=== PATIENT | male | born 1960 ===

== ENCOUNTER 2020-07-23 09:45 | Day surgery (SDC) | payer BC, OTHER ==
[~2020-07-23] VITALS: Ht 152.4 cm; Wt 89.8 kg
[~2020-07-23 09:45] MED LIST: ATOR40TA PO; Aspirin EC81 MG PO; BUPR150ER PO; CILO100 PO; CLOP75 PO; Lisinopril2.5 MG PO; XARELTO20 MG PO
--- NOTE | 2020-07-23 10:53 | NUR ---
PATIENT TAKEN IN FOR PROCEDURE. NOTIFIED VIA PHONE THAT HE WAS GOING IN FOR HIS PROCEDURE AND INFORMED HER THAT WE WOULD CALL HER WHEN HE GOT OUT. ALL QUESTIONS ANSWERED.
--- NOTE | 2020-07-23 13:45 | NUR ---
NAKIA RETURNED FROM THE SENIOR PROPERTY MANAGER. RIGHT GROIN CLOSURE WITH ANGIOSEAL. DRESSING CLEAN AND DRY. SMALL DIME SIZE NOTATION OF BLOOD ON THE DRESSING. LEFT PEDAL ACCESS WITH JONATHAN/TEGADERM IN PLACE. LEFT PEDAL DRESSING ALSO CLEAN AND DRY. PATIENT PLACED ON THE MONITOR AND CALL LIGHT IN REACH. VVS. NO PAIN NOTED. PATEINT TAKING SMALL SIPS OF WATER. PATIENT FALLS OFF TO SLEEP WHEN NOT DISTURBED. MEAL TRAY AT THE BEDSIDE. PATIENT PLAT IN THE BED IN REVERSE TRENDELENBERG.
--- NOTE | 2020-07-23 14:11 | NUR ---
DR. AVITIA AT THE BEDSIDE TO CHECK ON PATIENT. PATIENT WILL RETURN FOR PROCEDURE ON THE RIGHT LEG, CONSENT FOR THIS TODAY BY DR. AVITIA. CONSENT WILL BE SENT TO THE OFFICE FOR SCHEDULING.
--- NOTE | 2020-07-23 14:30 | NUR ---
HOB UP 15 DEGREES, PATIENT AWAKE AND FEEDING SELF. CALL LIGHT IN REACH.
--- NOTE | 2020-07-23 14:47 | NUR ---
GROIN CHECKED. STABLE HOB UP TO 0 DEGREES. WATCHING TV. CALL IGHT IN REACH. VVS. DOPPLER PULSES NOTED.
--- NOTE | 2020-07-23 15:08 | NUR ---
ON HER WAY FOR DISCHARGE. REVIEWED ALL DISCHARGE INSTRUCTIONS AND MEDICATIONS WITH THE PAITENT. HE VERBALIZED UNDERSTANDING AND COPIES IN HIS POSSESSION. HE UNDERSTANDS THAT THE OFFICE WILL CALL HIM TO SCHEDULE THE RIGHT LEG INTERVENTION TO BE DONE IN THE NEXT FEW WEEKS. PATIENT VOIDED 300 URINE.
--- NOTE | 2020-07-23 15:49 | NUR ---
PATIENT UP AND DRESSED, PIV DISCONTINUED. PATIENT TO THE RESTROOM AND ALL BELONGINGS GATHERED. COPIES OF DISCHARGE INSTRUCTIONS GIVEN TO THE PATIENT. PATIENT HERE FOR DISCHARGE. DISHCARGE TO PRIVATE VEHICLE VIA WHEELCHAIR.
== END 2020-07-23 15:56 | disposition home or self-care (01) ==
LOC: MHTC 09:45
DX: I70.223 Atherosclerosis of native arteries of extremities with rest pain, bilateral legs (principal); T82.898A Other specified complication of vascular prosthetic devices, implants and grafts, initial encounter; I97.89 Other postprocedural complications and disorders of the circulatory system, not elsewhere classified; F17.210 Nicotine dependence, cigarettes, uncomplicated; E78.5 Hyperlipidemia, unspecified; I10 Essential (primary) hypertension; Y71.2 Prosthetic and other implants, materials and accessory cardiovascular devices associated with adverse incidents; Z88.6 Allergy status to analgesic agent; Z79.82 Long term (current) use of aspirin; Z79.01 Long term (current) use of anticoagulants; Z79.02 Long term (current) use of antithrombotics/antiplatelets
CPT/HCPCS: 37184; 37224; 37228; 37232; 75716; 75774; 76937; 85347; 99152; 99153; C1725; C1757; C1760; C1769; C1887; C1894; J1644; J2250; J2997; J3010; J7030; J7050; Q9967

== ENCOUNTER 2020-08-19 09:37 | Day surgery (SDC) | payer BC, OTHER ==
[~2020-08-19] VITALS: Ht 177.8 cm; Wt 89.1 kg
--- NOTE | 2020-08-19 11:53 | NUR ---
DR. AVITIA AT THE BEDSIDE AND SPOKE WITH PATIENT, PRE-OP ASSESSMENT SIGNED.
--- NOTE | 2020-08-19 17:51 | NUR ---
PT ARRIVED TO ICU 1 FROM EDUCATIONAL CONSULTANT AT 1500. A/O X4, ASKS APPROPRIATE QUESTIONS ABOUT CARE. PT HAS SHEATH TO L FEMORAL ARTERY. TPA AND HEPARIN WERE STARTED PER ORDERS THROUGH SHEATH. SITE IS STABLE. PT HAS INCREASED HOB BY HIMSELF A COUPLE TIMES DESPITE BEING TOLD NOT TO DO THAT. PT IS HAVING PAIN IN R FOOT. PEDAL PULSES FOUND WITH DOPPLER X4. SKIN IS WARM AND PINK. FENTANYL GIVEN FOR PAIN, VERSED GIVEN TO RELAX PT SO HE IS NOT TRYING TO SIT UP FREQUENTLY. UPDATED OVER THE PHONE. NO SIGN OF DISTRESS. WILL CONTINUE TO MONITOR GROIN SITE UNTIL REPORT OFF TO NIGHT RN.
--- NOTE | 2020-08-20 05:14 | NUR ---
PATIENT HAS REMAINED A/O X4, ON ROOM AIR, BP STABLE, AND IN NSR. L FEM SITE HAS REMAINED SOFT, NONTENDER, AND NO EVIDENCE OF A HEMATOMA. SITE DEVELOPED SOME MINOR BLEEDING THIS MORNING DUE TO A LOOSE CONNECTION UNDER DRESSING. STILL NO EVIDENCE OF A HEMATOMA AT THIS TIME. SITE ALSO LOOKED AT BY WAREHOUSE LEAD-PEPPER. PATIENT TOLERATING CLEAR LIQUID DIET. THE PATIENT HAS ONLY COMPLAINED OF PAIN IN R FOOT THAT HAS CONTINUED THROUGH STAY THUS FAR. 100 Q1 FENTANYL GIVEN MOST OF SHIFT FOR COMFORT DUE TO 10/10 PAIN.
--- NOTE | 2020-08-20 07:08 | NUR ---
PT TAKEN TO VICE PRESIDENT OF NEWS BY VICE PRESIDENT OF NEWS RN X2. PT IS A/O X4, HAS PAIN IN R FOOT. SOME OOZING OF BLOOD AT SHEATH SITE BUT NOT SATURATING. TPA AND HEPARIN RUNNING IN SHEATH PT LEAVES. NO SIGN OF DISTRESS.
[2020-08-20] MEDS ORDERED: CLOP75 PO (10:51)
--- NOTE | 2020-08-20 13:15 | NUR ---
PT WAS BEDREST FOR 4 HOURS POST PROCEDURE. SLOWLY LIFTED HOB WITHOUT ISSUE. SAT AT SIDE OF BED FOR AWHILE THEN WAS ABLE TO TAKE A COUPLE STEPS WITHOUT ISSUE. L FEMORAL GROIN SITE IS STABLE. SMALL AMT OF BLOOD WITHIN THE DRESSING THAT HAS NOT CHANGED. R FOOT SITE HAS NOT CHANGED.
--- NOTE | 2020-08-20 14:05 | NUR ---
PT AMBULATORY IN ROOM. R FOOT ACCESS SITE AND L FEMORAL ACCESS SITE ARE STABLE. DISCHARGE INSTRUCTIONS FOR ACCESS SITES AND MEDS GONE OVER WITH PT MULTIPLE TIMES AND WITH . PT ABLE TO VERBALIZE BACK MEDICATIONS AND DOSES TO TAKE. RX LIST FA[facility]ED TO [facility]. DOSE OF ELIQUIS AND PLAVIX GIVEN BEFORE PT WAS DISCHARGED AND HEPARIN WAS STOPPED. PT WHEELED TO CAR WITH W/C. NO SIGN OF DISTRESS HE LEAVES.
== END 2020-08-20 14:31 | disposition home or self-care (01) ==
LOC: ICUE 09:37 → MHTC 09:37 → ICUE 14:40 → MHTC 08-20 14:31
DX: I70.223 Atherosclerosis of native arteries of extremities with rest pain, bilateral legs (principal); T82.868A Thrombosis due to vascular prosthetic devices, implants and grafts, initial encounter; F17.210 Nicotine dependence, cigarettes, uncomplicated; E78.5 Hyperlipidemia, unspecified; I10 Essential (primary) hypertension; Y71.1 Therapeutic (nonsurgical) and rehabilitative cardiovascular devices associated with adverse incidents; Z79.82 Long term (current) use of aspirin; Z79.02 Long term (current) use of antithrombotics/antiplatelets; Z79.01 Long term (current) use of anticoagulants; Z88.6 Allergy status to analgesic agent
CPT/HCPCS: 36415; 37184; 37185; 37211; 37214; 37224; 37228; 37230; 37232; 75716; 75774; 76937; 85018; 85347; 85384; 99152; 99153; A9270; C1725; C1751; C1753; C1757; C1760; C1769; C1874; C1887; C1894; J1644; J2250; J2997; J3010; J7030; J7040; J7050; Q9967

== ENCOUNTER 2021-03-17 09:34 | Observation (INO) | payer BC ==
[~2021-03-17] VITALS: Ht 177.8 cm; Wt 91.6 kg
--- NOTE | 2021-03-17 16:28 | NUR ---
ARRIVAL TO UNIT PT. ARRIVES FROM CLINICAL EDUCATION SPECIALIST, ALERT AND ORIENTED ON RA. PT. SUPINE IN BED, SHEATH TO RIGHT GROIN WNL, NO SWELLING NO HEMATOMA. PT. INSTRUCTED ON LAYING FLAT WITH NO FLEXION AT THE HIP. HEPARIN AND CATHFLO TO SHEATH PER CLINICAL EDUCATION SPECIALIST INSTRUCTION. DOPPLER PULSES TO RIGHT FOOT, DIFFICULTY OBTAINING DOPPLER PULSES TO LEFT FOOT, UNCHANGED PER CLINICAL EDUCATION SPECIALIST STAFF. RIGHT FOOT WARM, NO SWELLING, LEFT TOES COOL TO TOUCH WITH CAP REFILL >3 SECONDS TO GREAT TOE. PT REPORTS PAIN 10/10 TO LEFT LEG. NO SWELLING AT THIS TIME, UNCHANGED PER CLINICAL EDUCATION SPECIALIST HAND OFF. PT. PLACED ON BUYER RENTER, VSS WNL. CALL LIGHT IN REACH. WILL MED PER DR. CARIAS.
--- NOTE | 2021-03-17 17:58 | NUR ---
CALL TO DR. AVITIA FOR ADDITIONAL PAIN MEDICATION PT. YELLING AND CLENCHING FISTS, STATES "THIS PAIN IS UNTOLERABLE". PER DR. AVITIA 1-2MG DILAUDID Q2H. PT REPORTS PAIN TOLERABLE AT 10/10 WITH DILAUDID ADMIN. FOOT NOW PINK AND WARM. TOES NOW PINK WITH DOPPLER TO POST TIBIAL. PT GRONING AND RESTLESS IN BED. GROIN SITE REMAINS STABLE.
--- NOTE | 2021-03-17 18:14 | NUR ---
SHIFT SUMMARY CONTINUE TO HAVE DIFFICULTY MANAGING PAIN. PT. GETTING FENTANYL Q1H ALONG WITH VERSED AND DILAUDID Q2H PER DR. ORDER. PT FOOT NOW PINK AND WARM, WITH PULSES TO POSTERIOR TIBIAL, AND INT. DOPPLER TO PEDAL ON LEFT FOOT. GROIN SITE REMAINS STABLE, PT REMAINS SUPINE IN BED, ASSISTED TO REPOSITION FOR COMOFRT. TPA INFUSING ALONG WITH HEPARIN. CALL LIGHT IN REACH.
--- NOTE | 2021-03-17 21:33 | NUR ---
ASSUMED CARE AT 1900 PATIENT ALERT AND ORIENTED. 02 SATS 97% ON RA, ONCE GIVEN PAIN MEDS PLACE ON 2L VIA NC TO MAINTAIN 02 SATS >93%. LUNGS CLEAR. HR SR @70s. BP HYPERTENSIVE. PEDAL PULSES IN BLE FOUND WITH DOPPLER. LLE PINK BUT COOL, PATIENT HAS SENSATION IN EXTREMETY. PATIENT LAYING FLAT. TPA AND HEPARIN INF PER ORDERS. PATIENT REPORTS CONSTANT PAIN, MEDICATING FREQUENTLY PER EMAR. SEE SHIFT ASSESSMENT FOR MORE DETAIL.
--- NOTE | 2021-03-18 05:58 | NUR ---
SHIFT SUMMARY PATIENT IS ALERT AND ORIENTED X4. 02 SATS >95% WITH 2L VIA NC WHILE SLEEPING TO MAINTAIN 02 SATS. LUNGS CLEAR. HR SR @60S. BP STABLE. DOPPLER PULSES BLE. LLE PEDAL PULSE FOUND INTERMITTENLY WITH DOPPLER, LEFT FOOT PINK AND COOL TO THE TOUCH. PEDAL DRESSING C/D/I. LEFT TIBIAL DRESSING CHANGED TWICE AND PRESSURE HELD D/T SMALL AMOUNT OF BLEEDING. PAIN MEDS FREQUENTLY FOR PAIN CONTROL, SEE EMAR. NPO SINCE MIDNIGHT. PATIENT REMIAND FLAT WITH TPA AND HEPARIN INF. PATIENT USES URINAL. CALLS APPROPRIETLY. ABLE TO REPOSITION SELF IN BED.
--- NOTE | 2021-03-18 09:11 | NUR ---
AM NOTE... ASSUMED CARE OF PT AT 0700, THE PT IS A&Ox4, THE PT HAS A SHEATH IN THE RIGHT GROIN, WITH HEPARIN GTT AND TPA RUNNING PER ORDERS, PLAN IS FOR THE PT TO RETURN TO THE AIR TESTER APROX 1200 TODAY. THE PT IS IN SR IN THE 70'S WITH A STABLE BP. THE PT HAS AN ACCESS SITE TO THE LEFT D. PEDAL AND LEFT P. TIBIAL, THE SITE TO THE D. PEDAL IS C/D/I NO SWELLING, BLEEDING OR HEMATOMA NOTED. THE SITE TO THE P. TIBIAL IS NOTED TO BE OOZING WITH THE CURRENT DRESSING SATURATED WITH BLOOD. THE PT'S LEFT LEG FROM THE KNEE DOWN IS BRIGHT PINK WITH 1+ EDEMA NOTED, THE PT STATES THE CALF HURTS AT 9/10. PULSES FOUND TO BLE WITH DOPPLER. THE RIGHT GROIN SITE HAS A SMALL AMOUNT OF OOZING NOTED BUT THE SITE IS STABLE AT THIS TIME, NO SWELLING, BLEEDING OR HEMATOMA NOTED. THE PT IS ON RA W/O2 SATS >90% L/S COARSE T/O AND DIM IN THE BASES. BT PRESENT AND HYPERACTIVE, ABD IS FIRM AND NONTENDER TO PALP. THE DRESSING TO THE LEFT P. TIBIAL SITE WAS CHANGED BY THIS RN, A JONATHAN DRESSING WAS PLACED ON THE SITE AND THE SITE STARTED TO BLEED. PRESSURE WAS HELD BY THIS RN AND THE DIRECTOR OF DIRECT MARKETING FOR 11 MINS, THIS STOPPED THE BLEEDING FOR APROX 1 HOUR AND THE OOZING STARTED AGAIN. THE PROVIDER WAS CALLED AND UPDATED ON THIS CHANGE, NO NEW ORDERS WERE GIVEN. CALL LIGHT IN REACH WILL CONTINUE TO MONITOR.
--- NOTE | 2021-03-18 12:06 | NUR ---
PT UPDATE.... THE PT WAS TAKEN TO THE ANDROID PLATFORM DEVELOPER AT 1207. THE TPA AND HEPARIN GTT WERE TAKEN WITH THE PT. WILL CONTINUE TO MONITOR.
--- NOTE | 2021-03-18 14:38 | NUR ---
PT UPDATE.... PT RETURNED FROM THE ELECTRIC MOTOR ANALYST AT 1430, THE SHEATH WAS REMOVED AT 1420 AND AN ANGIO SEAL WAS PLACED TO THE RIGHT GROIN SITE. THE PT'S VS ARE STABLE AT THIS TIME, PLAN TO D/C HOME THIS AFTER NOON.
--- NOTE | 2021-03-18 15:15 | NUR ---
PT UPDATE.... THE PT'S RIGHT GROIN SITE IS STABLE AT THIS TIME, NO BLEEDING, SWELLING OR HEMATOMA NOTED. THE PT'S LEFT P. TIBIAL SITE HAS A SMALL HEMATOMA NOTED, PRESSURE WAS HELD AT THIS SITE FOR 10MINS, MOST OF THE SWELLING IMPROVED AND THE SITE IS NO LONGER OOZING AT THIS TIME. THE PT'S WAS UPDATED THAT THE PT IS TO D/C HOME APROX 1700 IF HIS RECOVERY GOES WELL. WILL CONTINUE TO MONITOR.
--- NOTE | 2021-03-18 17:31 | NUR ---
PT D/C HOME.... PT D/C'D HOME WITH WRITTEN AND VERBAL INSTRUCTIONS ON THE GRION SITE PRECAUTIONS AND CARE. PT VERBALIZED HIS UNDERSTANDING OF THESE INSTRUCTIONS. ALL THE PT'S BELONGINGS WERE PACKED AND SENT WITH THE PT. THE PT'S GROIN SITE, LEFT P. TIBIAL AND LEFT D. PEDAL SITES WERE ARE C/D/I WITH NO SWELLING, BLEEDING OR HEMATOMA NOTED. THE PT DENIED ANY PAIN TO THE SITES JUST THE CHRONIC PAIN TO HIS BLE. PT WAS ESCORTED OUT VIA W/C BY THIS RN.
== END 2021-03-18 17:25 | disposition home or self-care (01) ==
LOC: MHTC 09:34 → ICUE 15:37 → MHTC 15:46 → ICUE 03-18 17:25
PROVIDERS: ADMIT Radiology Diagnostic Radiology
DX: T82.392A Other mechanical complication of femoral arterial graft (bypass), initial encounter (principal); I70.213 Atherosclerosis of native arteries of extremities with intermittent claudication, bilateral legs; I10 Essential (primary) hypertension; Z20.822 Contact with and (suspected) exposure to COVID-19
CPT/HCPCS: 36415; 76937; 85018; 85347; 85384; 96374; 96375; 96376; 99152; 99153; A9270; C1725; C1757; C1760; C1769; C1874; C1887; C1894; C2623; G0378; J1170; J1644; J2250; J2405; J2997; J3010; J7030; J7040; Q9967

== ENCOUNTER 2021-04-07 08:59 | Day surgery (SDC) | payer BC ==
[~2021-04-07] VITALS: Ht 177.8 cm; Wt 92.0 kg
[2021-04-07 10:55] LABS: Influenza A, PCR NEGATIVE (NEGATIVE); Influenza B, PCR NEGATIVE (NEGATIVE); Resp Syncytial Virus, PCR NEGATIVE (NEGATIVE); SARS-Cov-2 (COVID-19) PCR, MMC NEGATIVE (NEGATIVE)
--- NOTE | 2021-04-07 14:45 | NUR ---
Patient arrived from [facility]. Received report from Dr Burris and Camilo MELTON. Patient has sheath in right groin with two ports and clear opsite at site with small amount of blood, Free of any swelling or hematoma. He is alert and oriented and is able to communicate his needs. He has 2+ left posterior tibial and 1+ /doppler right tibial and unable to find with doppler bilateral pedal and Camilo MELTON HC unable as well before leaving patient. TPA 1mg/hr infusing through sheath on clear line and Heparin in light green line at 500 units/hr. Patient has 20ga IV in LAC infusing LR from until gone. Patient has called significant otherr with update and other family as well.
--- NOTE | 2021-04-07 18:02 | NUR ---
Patient has c/o 8-10/10 pain in right foot with very minimal relief with Dilaudid and Fentanyl. He continues to have TPA at 1mg/hr and Heparin at 500 units/hr infusing through left groin cath. Have told patient several time to not move left extremity and he has been thrashinbg around. I have checked groin site several times whenm reminding him and soft and palpable. He remaisn very alert and hypertensive with pain. He tolerated finger foods when arriving and has dinner sitting on tray now.
--- NOTE | 2021-04-07 18:22 | NUR ---
Patient continues to have bilateral + pulses to posterior tibial. Right foot remains cool even with warming pad and sock.
--- NOTE | 2021-04-07 19:40 | NUR ---
ASSUMED PT CARE AT 1915 FROM LINH LINDQUIST PT LYING IN BED MOANING/GROANING D/T 10/10 PAIN TO R FOOT. SILK SCREEN PRINTER HELPER DILAUDID HAS BEEN ORDERED AND PHARMACY IS CURRENTLY IN THE PROCESS OF MAKING THE GTT. PT IS ALERT AND ORIENTED AND ABLE TO MAKE HIS NEEDS KNOWN. LEFT GROIN SHEATH IN PLACE WITH TPA INFUSING AT 1MG/HR AND HEPARIN AT 500 UNITS/HR. SITE REMAINS SOFT, NON-TENDER WITH NO OOZING NOTED. RIGHT PEDAL PULSE UNOBTAINABLE VIA DOPPER. ABLE TO OBTAIN A VERY FAINT AND SLUGGISH PULSE TO RIGHT TIBIAL SITE. LEFT PEDAL AND TIBIAL PULSES BOTH OBTAINABLE VIA DOPPLER. PT IS HYPERTENSIVE AT THIS TIME MOST LIKELY D/T PAIN; WILL REASSESS ONCE PAIN IS MANAGED. PT MEDICATED WITH FENTANYL AT 50MCG WHILE WE WAIT FOR DILAUDID SILK SCREEN PRINTER HELPER. PT PROVIDED WITH URINAL AND CALL LIGHT IS WITHIN REACH. WILL CONTINUE TO MONITOR.
--- NOTE | 2021-04-08 04:25 | NUR ---
END OF SHIFT SUMMARY PT SLEPT MOST OF NIGHT. ABIDED BY STRICT BED REST PRECAUTIONS. LEFT GROIN SHEATH REMAINS IN PLACE; SOFT, NON-TENDER WITH A SMALL, <5CM, HARD AND INDURATED AREA. NO OOZING AT SITE. PULSES REMAIN OBTAINABLE VIA DOPPLER TO LLE AND TIBIAL DOPPLER OBTAINED TO RLE. UNABLE TO OBTAIN DOPPLER PEDAL PULSE TO RLE. R TOES APPEAR DUSKY; WARMER NOW THAN AT THE START OF THE SHIFT. HEPARIN INFUSING AT 500 UNITS/HR AND TPA AT 1MG/HR. PT REMAINS ALERT AND ORIENTED WITH NO NEURO CHANGES NOTED THIS SHIFT. DILAUDID MANAGER FAST FOOD EFFECTIVELY CONTROLLED PT'S PAIN TO THE POINT WHERE HE WAS ABLE TO SLEEP AND STATES IT IS NOW A 4/10 COMPARED TO A 10/10. CALL LIGHT IS WITHIN REACH AND PT IS ABLE TO MAKE HIS NEEDS KNOWN. WILL CONTINUE TO MONITOR UNTIL REPORT IS HANDED OFF TO ONCOMING RN.
--- NOTE | 2021-04-08 07:55 | NUR ---
ASSUMPTION OF CARE Pt is a/o x 4 with ongoing pain to his right foot. He is using his DATA ENTRY OPERATOR for pain control. His Heparin and TPA are running as ordered. His sheath is patent in his left Fem artery with fluids infusing. The insertion site is soft and non-tender with no bleeding, the dressing is CDI. His BLE pulses were found with the doppler. He is on room air with sats in the 90's. His right foot toes are dusky but warm. He is scheduled to go to the metallurgy laboratory technician this morning and his NPO for his procedure. He has his call light and calls when needed.
--- NOTE | 2021-04-08 08:35 | NUR ---
UPDATE Dr Seymour stopped by and talked with the pt about his scheduled procedure. Dr Seymour said that they will be taking him back shortly and the pt called his family to update them.
--- NOTE | 2021-04-08 15:51 | NUR ---
PT AMBULATED AROUND NURSE'S STATION WITHOUT DIFFICULTY. REPORTS MINIMAL PAIN. BACK TO ROOM AND GROIN SITE ASSESSED - LEFT GROIN SOFT AND NO SIGNS OF BLEEDING. PT INSTRUCTED TO CONTINUE TO MONITOR GROIN SITE AND RETURN TO ER IF BLEEDING OR HEMATOMA DEVELOPS. PT AGREEABLE AND STATES "I'VE DONE THIS BEFORE".
[2021-04-08] MEDS ORDERED: Norco 5-325 Ta1 EACH PO (15:56)
--- NOTE | 2021-04-08 16:07 | NUR ---
SHIFT SUMMARY Pt has been a/o x 4 all day. pre-procedure he had quite a bit of pain that was being managed with his SPRINKLER IRRIGATION EQUIPMENT MECHANIC. When he returned from his revas he reported little to no pain. He spoke with Dr Seymour at the bedside. Dr Seymour agreed after his recovery time he could go home to be with his who is on hospice. The pt has +3 bilat tibial pulses audible with the doppler. His left femoral site had no additional bleeding since his return to the unit. He ate a goos lunch and was drinking PO fluids. He has been using the urinal all day.After 4 hours of laying flat in the bed the charge nurse sat the pt on the side of the bed and then ambulated the pt around the unit. The pt was very insistant upon leaving after this. His dc instructions were reviewed with him and he verbalized an undertanding. He has a hard RX for his pain meds. His ride was here and he was assisted out to the exit. The pt was stable upon dc.
== END 2021-04-08 16:20 | disposition home or self-care (01) ==
LOC: MHTC 08:59 → ICUE 08:59 → MHTC 04-08 16:20
PROVIDERS: Radiology Diagnostic Radiology
DX: I70.213 Atherosclerosis of native arteries of extremities with intermittent claudication, bilateral legs (principal); I10 Essential (primary) hypertension; E78.5 Hyperlipidemia, unspecified; Z88.6 Allergy status to analgesic agent; Z95.828 Presence of other vascular implants and grafts; Z87.891 Personal history of nicotine dependence; Z20.822 Contact with and (suspected) exposure to COVID-19
CPT/HCPCS: 0241U; 36415; 76937; 85018; 85347; 85384; 90686; 99152; 99153; A9270; C1725; C1753; C1757; C1760; C1769; C1887; C1894; C2623; G0008; J1170; J1644; J2250; J2997; J3010; J7030; J7040; J7050; Q9967

== ENCOUNTER 2021-10-05 09:46 | Inpatient (IN) | payer BC ==
[~2021-10-05] VITALS: Ht 177.8 cm; Wt 88.0 kg
[~2021-10-05 09:46] MED LIST changes: +Norco 5-325 Ta1 EACH PO
[2021-10-05] MEDS ORDERED: XARELTO2.5 M1 PO (11:43)
[2021-10-06 03:39] LABS: Source, Urine Foley catheter
[2021-10-06 03:40] LABS: Bilirubin, Urine Neg (Neg); Blood, Urine Neg (Neg); Glucose Qualitative, Urine Neg (Neg); Ketones, Urine Neg (Neg); Leukocyte Esterase, Urine 1+ (Neg); Nitrite, Urine Neg (Neg); Protein, Urine Neg (Neg); Urobilinogen, Urine NORM (Normal)
[2021-10-06 03:47] LABS: Appearance, Urine Clear (Clear); Color, Urine Yellow (P-Yellow)
[2021-10-06 03:48] LABS: Bacteria Not Seen /hpf; Red Blood Cells, Urine Not Seen /hpf (0-2); Squamous Epithelial Cells Rare /hpf (Few); White Blood Cells, Urine 0-2 /hpf (0-5)
== END 2021-10-07 09:30 | disposition home or self-care (01) | DRG 253 ==
LOC: MHTC 09:46 → ICUW 16:13
PROVIDERS: ADMIT Radiology Diagnostic Radiology
PROC: 047N3Z1 Dilation of Left Popliteal Artery using Drug-Coated Balloon, Percutaneous Approach (ICD-10-PCS; principal; 2021-10-05)
PROC: 047U3ZZ Dilation of Left Peroneal Artery, Percutaneous Approach (ICD-10-PCS; 2021-10-05)
PROC: 047S3ZZ Dilation of Left Posterior Tibial Artery, Percutaneous Approach (ICD-10-PCS; 2021-10-05)
PROC: B41G1ZZ Fluoroscopy of Left Lower Extremity Arteries using Low Osmolar Contrast (ICD-10-PCS; 2021-10-05)
PROC: 047S3ZZ Dilation of Left Posterior Tibial Artery, Percutaneous Approach (ICD-10-PCS; 2021-10-06)
PROC: 047N3DZ Dilation of Left Popliteal Artery with Intraluminal Device, Percutaneous Approach (ICD-10-PCS; 2021-10-06)
PROC: B41G1ZZ Fluoroscopy of Left Lower Extremity Arteries using Low Osmolar Contrast (ICD-10-PCS; 2021-10-06)
DX: I70.213 Atherosclerosis of native arteries of extremities with intermittent claudication, bilateral legs (principal); T82.858A Stenosis of other vascular prosthetic devices, implants and grafts, initial encounter; Z98.890 Other specified postprocedural states; E78.5 Hyperlipidemia, unspecified; Z87.891 Personal history of nicotine dependence; Z88.8 Allergy status to other drugs, medicaments and biological substances; Z79.02 Long term (current) use of antithrombotics/antiplatelets; Z79.899 Other long term (current) drug therapy; Z79.01 Long term (current) use of anticoagulants; Y83.8 Other surgical procedures as the cause of abnormal reaction of the patient, or of later complication, without mention of misadventure at the time of the procedure
CPT/HCPCS: 36140; 36415; 37211; 37214; 37225; 37226; 37228; 37232; 37236; 51702; 75716; 75774; 76937; 81001; 85018; 85384; 85520; 99152; 99153; A9270; C1714; C1725; C1757; C1760; C1769; C1874; C1887; C1894; C2623; J1170; J1644; J2250; J2997; J3010; J7030; J7040; Q9967

== ENCOUNTER 2021-10-19 06:23 | Inpatient (IN) | payer BC ==
[~2021-10-19] VITALS: Ht 177.8 cm; Wt 90.8 kg
[~2021-10-19 06:23] MED LIST changes: +XARELTO2.5 M1 PO
--- NOTE | 2021-10-19 11:30 | NUR ---
ADMIT PT ARRIVED TO ICU ROOM 14 AT 0945 VIA BED S/P MINING ENGINEERING TECHNOLOGIST. PT ARRIVES WITH LEFT FEMORAL ARTERIAL SHEATH IN PLACE. PT IS AWAKE, ALERT, AND ORIENTED. PT COMPLAINS OF PAIN TO RIGHT LEG UPON ARRIVAL. UNABLE TO OBTAIN PULSES TO RLE WITH DOPPLER. PEDAL AND PT PULSES PRESENT WITH DOPPLER TO LLE. VITAL SIGNS STABLE. TPA STARTED AT 2 MG/HR TO DISTAL PORT OF SHEATH AND HEPARIN AT 6 ML/HR TO SIDE PORT OF SHEATH PER DR AVITIA ORDERS. PT WITH ONGOING PAIN TO RLE. DR AVITIA NOTIFIED AND ORDERS RECIEVED TO START DILAUDID ELECTRIC MOTOR REPAIRING SUPERVISOR. WILL CONTINUE TO MONITOR.
--- NOTE | 2021-10-19 17:46 | NUR ---
SHIFT SUMMARY NO ACUTE CHANGES THIS SHIFT. PT REMAINS ALERT AND ORIENTED WHEN AWAKE. PT SLEEPING OFF AND ON THIS AFTERNOON. PT REPORTS BETTER PAIN CONTROL WITH DILAUDID COFFEE SHOP MANAGER INFUSING. VITAL SIGNS REMAIN STABLE. SHEATH REMAINS IN PLACE TO LEFT GROIN ACCESS SITE WITH TPA INFUSING AT 1 MG/HR TO DISTAL PORT AND HEPARIN INFUSING AT 6 ML/HR TO SIDE PORT. PULSES STRONG TO LLE. PULSES REMAIN ABSENT TO RLE WITH DOPPLER. RLE REMAINS COOL AND PALE WITH OCCASIONAL MOTTLING THAT COMES AND GOES. PT USES URINAL TO VOID INDEPENDENTLY. WILL CONTINUE TO MONITOR AND REPORT OFF TO ONCOMING RN.
--- NOTE | 2021-10-19 19:39 | NUR ---
ASSUMED CARE OF PT @1900 FROM CHRIS MELTON PT AWAKE WITH URINAL IN PLACE. NO FAMILY OR VISITORS IN ROOM. TPA RUNNING @ 1MG/HR. HEPARIN RUNNING @6 ML/HR. DILAUDID CHANNEL ROUGHER RUNNING @ 1MG/HR. PT LYING REVERSE TRENDELBERG. BP WNL. O2 SAT WNL.
--- NOTE | 2021-10-19 20:30 | NUR ---
PT SLEEPING WITH INTERMITENT NONBREATHING PATTERN AND SNORING. O2 SATURATION DIPPING TO 88% WITH NON BREATHING EPISODES. PT STARTED ON 2L NASAL CANULA. WILL CONTINUE TO MONITOR FOR ANY NEG CHANGES.
--- NOTE | 2021-10-19 22:04 | NUR ---
DILAUDID DISTRIBUTOR OF DIRECTORIES PUMP CHANGED TO 0.5MG/HR DUE TO HEAVY SEDATION S/S. WILL CONTINUE TO MONITOR.
--- NOTE | 2021-10-19 22:29 | NUR ---
CALLED DR AVITIA REGARDING FIBRINOGEN LEVEL AT 127. ORDERS TO CHANGE IV TPA TO 0.5 MG/HR. CONTACTED PHARMACY IMMEDIATELY AFTER TO INFORMED OF CHANGE IN RATE.
--- NOTE | 2021-10-20 03:59 | NUR ---
CALLED DR AVITIA WITH FIBRINOGEN RESULT OF 118. STATED NO CHANGE TO ORDER ON TPA CURRENTLY RUNNING AT 0.5 MG/HR.
--- NOTE | 2021-10-20 05:55 | NUR ---
END OF SHIFT SUMMARY PT IN AND OUT OF SLEEP THROUGHOUT SHIFT WITH INTERMITENT APNEIC EPISODES WITH O2 SATS OCCASIONALLY IN THE MID 80'S. PT THEN PUT ON 2L NASAL CANULA WITH O2 SATS >92. DILAUDID UROLOGIST MD RUNNING AT 1MG/HR AND 1MG/30MIN UROLOGIST MD DOSE. FIBRINOGEN LEVELS <[address] ORDERS TPA RUNNING AT 0.5 MG/HR WITH NS TKO AT 10 ML/HR. RIGHT LEG RAGAINING WARMTH DOWN TO ANKLE AREA WITH PEDAL PULSE ABSENT. LEFT PEDAL PULSE ACHIEVED BY DOPPLER ONLY. VITALS WNL WITH EXCEPTION OF RR WHICH RESUMED NORMAL AFTER UROLOGIST MD CUT IN HALF. ADVISED PT OF NPO STATUS THIS AM DUE TO VICE PRESIDENT OF TALENT MANAGEMENT SCHEDULE. URINATING WITH URINAL ONLY. NO FAMILY OR VISITORS THIS SHIFT.
--- NOTE | 2021-10-20 07:25 | NUR ---
ASSUMPTION OF CARE ASSUMED CARE OF PATIENT AT 0705, PATIENT ALERT AND ORIENTED. HEPARIN AND TPA INFUSING VIA SHEATH IN LEFT GROIN. DILAUDID BORING MILL SET UP OPERATOR VIA PIV. PATIENT STATED PAIN WELL MANAGED AT THIS TIME. PEDAL PULSES DOPPLERED TO LLE, RLE FAINT DOPPLERED PULSE. BILATERAL FEET WARM TO TOUCH, PINK IN COLOR. PATIENT STATES GOOD FEELING. VITALS STABLE, 2L 02 VIA NC WITH SP02 ABOVE 95%. SUPPORT TEAM MEMBER ARRIVED AT 0715, PATIENT DISCONNECTED FROM TPA AND HEPARIN INFUSIONS. IV SALINE LOCKED. TO SUPPORT TEAM MEMBER AT 0724.
--- NOTE | 2021-10-20 09:10 | NUR ---
POST DEPARTMENT EDITOR PATIENT RETURNED TO ROOM AT 0905 FROM DEPARTMENT EDITOR. RECEIVED REPORT FROM ADRYAN MELTON. REVIEWED DRIPS INFUSING VIA SHEATH LOCATED IN LEFT GROIN, TPA AT 0.5MG/HR AND HEPARIN AT 3.38/KG/HR. SCHEDULED FIBRINOGENS TO CONTINUE. PLAN TO RETURN TO DEPARTMENT EDITOR THIS AFTERNOON. DOPPLERED PULSES TO LEFT FOOT, UNABLE TO DOPPLER PULSES TO RIGHT FOOT, TOES TO RIGHT FOOT COLD AND PALE. RECEIVED IN REPORT TO MONITOR CLOSELY FOR COMPARTMENT SYNDROME TO RLE, MEASURED CALF AREA AT 25 CM AROUND. PATIENT CURRENTLY WITH EYES CLOSED, EASILY AWAKENS, ORIENTED TO SITUATION. VITALS STABLE, ON ROOM AIR WITH SP02 ABOVE 95%.
--- NOTE | 2021-10-20 10:49 | NUR ---
ORDER UPDATE RECEIVED FIBRINOGEN LEVEL WITH WRITTEN ORDERS TO REPORT IF LESS THAN 150. TPA WAS INFUSING AT 0.5MG/HR VIA SHEATH. PATIENT BEGAN COMPLAINING OF INCREASED TENDERNESS AND PAINFUL TO TOUCH TO RIGHT CALF ANTERIOR AND POSTERIOR. CALF MEASURED WITH SIZE AT 31CM. CALF IS FIRM TO TOUCH. REPORTED FIBRINOGEN LEVEL AND CURRENT ASSESSMENT TO RIGHT LEG TO DR. AVITIA. RECEIVED ORDERS TO TURN OFF TPA, CHANGE HEPARIN ORDERS TO BE MANAGED BY PHARMACY BUT TO CONTINUE VIA SHEATH AND TO CONSULT SURGICAL PHYSICIAN. NOTIFIED BUSH AND VINE FARMER FRUIT CROPS STACEY OF CURRENT CONCERNS. CONSULT TO SURGERY CALLED AT 0935 AND RECEIVED A CALL BACK FROM DR. PEDERSEN THAT ORTHO WOULD NEED CONSULTED. CALLED CONSULT INTO DR. SCHAEFER'S OFFICE. WILL CONTINUE TO ASSESS RIGHT LEG FOR CHANGES.
[2021-10-20 11:33] LABS: International Normalized Ratio 1.21; Prothrombin Time Results 12.5 Sec (9.7-11.5)
--- NOTE | 2021-10-20 14:45 | NUR ---
METAL FABRICATING INSPECTOR PATIENT OUT OF ROOM TO METAL FABRICATING INSPECTOR. HEPARIN CONTINUES TO INFUSE VIA SHEATH.
--- NOTE | 2021-10-20 18:04 | NUR ---
SHIFT SUMMARY PATIENT ARRIVED BACK TO ROOM AT 1730. ALERT, VITALS STABLE ON ROOM AIR. SHEATH REMAINS TO LEFT GROIN WITH HEPARIN INFUSING AT 20ML/HR. NOW TO BE MANAGED BY PHARMACY. DOPPLERED PEDAL PULSES TO LEFT FOOT WITH ABSCENT PEDAL PULSES TO THE RIGHT. CALF MEASURED AT 31 CM WITH REPORTS OF TENDERNESS AT SITE BUT BETTER THAN EARLIER. DILAUDID K [employer] SCHOOL PRINCIPAL CONTINUES. DINNER TRAY PROVIDED. DR. SCHAEFER WROTE ORDERS OF NPO AFTER MIDNIGHT WITH REPORT TO MONITOR RIGHT LEG OVER NIGHT AND DR. TREJO WILL ASSESS IN THE MORNING. PATIENT EDUCATED ABOUT PLAN, VERBALIZED UNDERSTANDING. CALL LIGHT AND K [employer] SCHOOL PRINCIPAL BUTTON IN REACH. WILL REPORT TO ONCOMING RN.
--- NOTE | 2021-10-20 19:17 | NUR ---
Assumed care. Report received from marlon MELTON. Pt resting in bed at this time. Alert and oriented, on room air. Pt has L/fem sheath in place from pathology laboratory aides teacher, Heparin infusing at units/kg/hr into sheath via side port. Dilaudid TEST FIXTURE DESIGNER set at 1 mg/hr with 0.5 mg patient controlled dose every half hour. Right leg swollen/red, gibson for measurments in place. VS stable, will continue to monitor.
--- NOTE | 2021-10-21 07:40 | NUR ---
ASSUMPTION OF CARE RECEIVED REPORT FROM NAA MELTON, ASSUMED CARE OF PATIENT. PATIENT A/O, RATES PAIN COMFORTABLE AT THIS TIME IN RLE. DILAUDID COMMERCIAL ILLUSTRATOR INFUSING ORDERED. VITALS STABLE, ON ROOM AIR. SHEATH TO LEFT GROIN WITH HEPARIN INFUSING ORDERED. PATIENT MAINTAINS FLAT POSITIONING. PEDAL PULSES DOPPLERED TO LEFT FOOT, FAINT PULSES DOPPLERED TO RIGHT FOOT. NO CHANGES IN SIZE OR PAIN TO RIGHT CALF. WILL REVIEW ORDERS AND TREAT PRESCRIBED.
--- NOTE | 2021-10-21 14:34 | NUR ---
SERVICE CENTER TECHNICIAN PATIENT OUT OF ROOM TO SERVICE CENTER TECHNICIAN AT THIS TIME.
--- NOTE | 2021-10-21 15:47 | NUR ---
RETURN TO ROOM PATIENT RETURNED TO ROOM FROM WRONG ADDRESS CLERK. DRESSING TO LEFT GROIN WITH SITE SOFT, NON-TENDER, NO BLEEDING NOTED. PULSES DOPPLERED TO LEFT FOOT WITH FAINT DOPPLERED PULSE TO RIGHT. PATIENT ABLE TO MOVE RIGHT FOOT AND STATES RIGHT LEG IS TENDER BUT FEELS BETTER. VITALS STABLE ON ROOM AIR.
[2021-10-21] MEDS ORDERED: XARELTO20 MG PO (16:05)
--- NOTE | 2021-10-21 16:52 | NUR ---
DISCHARGE DR. AVITIA ROUNDED AT 1600, GAVE PATIENT XARELTO PACK TO FOLLOW FOR 4 WEEKS. STATED THERE WAS NO FURTHER CONCERN FOR COMPARTMENT SYNDROME. PATIENT STATED HIS LEG WAS FEELING BETTER AND HE DIDN'T BELIEVE HE HAD COMPARTMENT SYNDROME EITHER. RN ASSESSED RIGHT LEG TO FIND ANTERIOR PART OF CALF STILL FIRM, SAME MEASUREMENT SIZE AND PULSES REMAIN FAINTLY DOPPLERED TO RIGHT FOOT. DR AVITIA REVIEWED XARELTO PLAN AND FOLLOW UP VISIT EXPECTATION WITH PATIENT. RN CLARIFIED THE DISCHARGE TIME EXPECTATION WITH DR. AVITIA, SPECIFICALLY ASKING HOW LONG THE PATIENT SHOULD BE MONITORED FOR BEFORE DISCHARGE. DR. AVITIA STATED HE COULD LEAVE RIGHT AWAY BECAUSE HE KNEW THE PATIENT WAS WANTING TO GO HOME. PATIENT WANTED TO LEAVE SOON DR. AVITIA SAID HE COULD. LEFT GROIN SITE WITH DRESSING, REMAINED SOFT, NON-TENDER WITH NO BLEEDING. IV REMOVED TO LEFT AC WITH CATHETER INTACT. PATIENT REMOVED TELE MONITOR ON HIS OWN, GOT SELF OUT OF BED AND BEGAN TRYING TO CHANGE HIMSELF. PATIENT GRIMACING AND LIMPING EACH TIME HE PUTS FULL WEIGHT ON RIGHT LEG. PATIENT STATED "THIS TIME WAS REALLY ROUGH ON ME". PATIENT STATING HIS LEG WAS TENDER WHEN STANDING AND HE FELT DIZZY WHEN INITIALLY STANDING UP. RN ASKED PATIENT IF HE WOULD LIKE TO LAY BACK DOWN AND RECHECK HIS VITALS. PATIENT SAID "NO, I'M SURE I'LL BE DIZZY FOR A WHILE". PATIENT DRESSED HIMSELF, REVIEWED DISCHARGE INSTRUCTIONS. ASKED PATIENT IF HE WOULD COMPLETE FOLLOW UP APPOINTMENT HE SAID HE WOULD CALL THE OFFICE IN THE MORNING. PATIENT TRANSFERED SELF TO WHEELCHAIR. RN ASSISTED PATIENT TO FRONT ENTRANCE TO MEET A FRIEND HIS RIDE HOME. PATIENT TRANSFERED SELF OUT OF WHEELCHAIR. STILL COMPLAINED OF TENDERNESS TO RIGHT LEG WITH ANY ACTIVITY. BELONGINGS AND DISCHARGE INSTRUCTIONS WITH PATEINT.
--- NOTE | 2021-10-21 17:10 | NUR ---
DILAUDID WASTE DILAUDID CHLORINATOR OPERATOR WASTED 22ML WITH MARTY MONTEIRO RN.
== END 2021-10-21 16:37 | disposition home or self-care (01) | DRG 315 ==
LOC: ICUW 06:23 → MHTC 06:23 → ICUW 09:29 → MHTC 10-21 13:29 → ICUW 10-21 13:31
PROVIDERS: ADMIT Radiology Diagnostic Radiology
PROC: 3E05317 Introduction of Other Thrombolytic into Peripheral Artery, Percutaneous Approach (ICD-10-PCS; principal; 2021-10-19)
PROC: B41G1ZZ Fluoroscopy of Left Lower Extremity Arteries using Low Osmolar Contrast (ICD-10-PCS; 2021-10-19)
PROC: B41F1ZZ Fluoroscopy of Right Lower Extremity Arteries using Low Osmolar Contrast (ICD-10-PCS; 2021-10-19)
DX: T82.868A Thrombosis due to vascular prosthetic devices, implants and grafts, initial encounter (principal); I74.3 Embolism and thrombosis of arteries of the lower extremities; I70.6 Atherosclerosis of nonbiological bypass graft(s) of the extremities; I10 Essential (primary) hypertension; E78.5 Hyperlipidemia, unspecified; Z79.02 Long term (current) use of antithrombotics/antiplatelets; Z88.6 Allergy status to analgesic agent; Z79.899 Other long term (current) drug therapy; Z98.890 Other specified postprocedural states; Z87.891 Personal history of nicotine dependence; Y83.8 Other surgical procedures as the cause of abnormal reaction of the patient, or of later complication, without mention of misadventure at the time of the procedure
CPT/HCPCS: 36247; 36415; 37184; 37185; 37211; 37213; 37214; 37228; 37232; 75716; 75774; 76937; 80048; 80053; 80061; 85007; 85018; 85025; 85027; 85347; 85384; 85610; 85730; 99152; 99153; A9270; C1725; C1751; C1757; C1760; C1769; C1887; C1894; J1170; J1644; J2250; J2405; J2997; J3010; J7030; J7040; J7050; Q9967

== ENCOUNTER 2021-12-20 15:16 | Inpatient (IN) | payer BC ==
[~2021-12-20] VITALS: Ht 177.8 cm; Wt 84.9 kg
[2021-12-20 15:43] LABS: Hematocrit 43.9 % (37.0-53.0); Mean Corpuscular HGB 29.5 pg (26.0-34.0); Mean Corpuscular HGB Conc 31.9 g/dL (31.5-36.5); Mean Corpuscular Volume 93 fL (80-100); Mean Platelet Volume 10.7 fL (9.1-12.4); Platelet Count 322 K/mm3 (150-400); RDW Coefficient Variation 12.8 % (11.7-14.2); RDW Standard Deviation 43.9 fL (35.1-46.3); Red Blood Cell Count 4.74 M/mm3 (4.30-5.90); White Blood Cell Count 10.52 K/mm3 (4.00-11.30)
[2021-12-20 15:56] LABS: Bun/Creatinine Ratio 13.7 (12.0-20.0); Creatinine, Blood 0.66 mg/dL (0.60-1.20); Potassium, Blood 3.9 mmol/L (3.5-5.5)
[2021-12-20 16:03] LABS: International Normalized Ratio 1.08; Prothrombin Time Results 11.3 Sec (9.7-11.5)
--- NOTE | 2021-12-20 16:47 | NUR ---
ICU ADMISSION: Pt arrived to ICU 01 at 1640. Distal pulses of LLE intact. Pt educated on activity restrictions.
--- NOTE | 2021-12-20 19:00 | NUR ---
SHIFT SUMMARY: pt transferred to ICU 1 from [facility]. TPA and heparin were started as directed. Distal pulses of LLE intact. RLE pulses absent upon arrival from clay processing labourer and normal finding for this patient per clay processing labourer RN. RLE pink and warm with 4-5 second cap refill.
--- NOTE | 2021-12-20 20:00 | NUR ---
ASSESSMENT/ASSUMED CARE PT AWAKE A&O. C/O RIGHT FOOT/ANKLE PAIN 05/20 AND REQUESTED SOMETHING FOR SLEEP. PT MED WITH MELATONIN AND ROXICODONE 5MG PO. PT REFUSING STOOL SOFTENERS. LUNGS CLEAR ON ROOMAIR. RESP EVEN AND NONLABORED. HEART RATE REGULAR SINUS. BP STABLE. FAINT DOPPLER PULSES TO BIALT LOWER EXT. RIGHT FOOT COOL AND RED. OFF GOING RN COMFIRMS NO CHANGE FROM WHEN PT ARRIVED BACK FROM [facility] TO COLOR AND TEMP OF RIGHT FOOT. BT+ ABD SOFT AND NONTENDER. ICE CREAM GIVEN. PT TAKING PO WITHOUT DIFFICULTY. VOIDING CLEAR YELLOW URINE VIA URINAL. LEFT GROIN WITH SHEATH. SITE CLEAR, NO BLEEDING OR HEMATOMA NOTED. PT LYING SUPINE WITH BED TILTED.
--- NOTE | 2021-12-20 22:57 | NUR ---
PAIN PT STATES,"MY FOOT IS WAKING UP. I'M HAVING MORE PAIN NOW. 30/12". MED WITH FENTANYL 25 MCQ. PT STATES,"WHAT IS YOUR BACK UP PLAN IF THE DOESN'T WORK". EXPLAINED WHAT MEDS I COULD GIVE AND HOW OFTEN. PT STATES,"LAST TIME I WAS HERE I HAD DILAUDID ON A TICKET TAKER FERRYBOAT".
--- NOTE | 2021-12-20 23:20 | NUR ---
PAIN PT STATES,"THE PAIN IS COMING BACK EVEN MORE". CALL OUT TO DR SERRANO REGARDING PAIN
--- NOTE | 2021-12-20 23:50 | NUR ---
PAIN PT C/O PAIN 20/10 AFTER MED WITH FENTANYL AND ROXICODONE. ORDER RECEICVED FROM DR SERRANO FOR DILAUDID HONING MACHINE OPERATOR. HONING MACHINE OPERATOR SET UP AND LOADING DOSE STARTED. PT REPORTS PAIN 2/10 AFTER LOADING DOSE. RIGHT FOOT COOL TO TOUCH BUT WARMER THAN START OF SHIFT. COLOR OF RIGHT FOOT SAME COLOR OF LEFT FOOT.
--- NOTE | 2021-12-21 00:39 | NUR ---
SPO2 PT SLEEPING, SHALLOW BREATHING. SPO2 88-91% ON ROOMAIR. PT AWAKENS EASILY TO VERBAL STIMULI. STATES,"THE PAIN IS BETTER. THAT FOOT IS STILL HURTING BUT NOW I CAN TOLERATE IT". PT PLACED ON 2 LITERS O2 VIA NC. SPO2 UP TO 98%.
[2021-12-21 06:11] LABS: BASOPHILS ABSOLUTE AUTO 0.09 K/mm3 (0.00-0.23); BASOPHILS PERCENT AUTO 1 % (0-2); EOSINOPHILS ABSOLUTE AUTO 0.24 K/mm3 (0.00-0.68); EOSINOPHILS PERCENT AUTO 2 % (0-6); Hematocrit 43.3 % (37.0-53.0); Hemoglobin 13.8 g/dL (13.5-17.5); IMMATURE GRAN ABSOLUTE AUTO 0.03 K/mm3 (0.00-0.10); IMMATURE GRAN PERCENT AUTO 0 % (0-1); LYMPHOCYTES ABSOLUTE AUTO 2.22 K/mm3 (0.84-5.20); LYMPHOCYTES PERCENT AUTO 22 % (21-46); MONOCYTES ABSOLUTE AUTO 0.91 K/mm3 (0.16-1.47); MONOCYTES PERCENT AUTO 9 % (4-13); Mean Corpuscular HGB 29.8 pg (26.0-34.0); Mean Corpuscular HGB Conc 31.9 g/dL (31.5-36.5); Mean Corpuscular Volume 94 fL (80-100); Mean Platelet Volume 10.6 fL (9.1-12.4); NEUTROPHILS ABSOLUTE AUTO 6.83 K/mm3 (1.96-9.15); NEUTROPHILS PERCENT AUTO 66 % (41-73); Platelet Count 269 K/mm3 (150-400); RDW Coefficient Variation 12.8 % (11.7-14.2); RDW Standard Deviation 43.8 fL (35.1-46.3); Red Blood Cell Count 4.63 M/mm3 (4.30-5.90); White Blood Cell Count 10.32 K/mm3 (4.00-11.30)
--- NOTE | 2021-12-21 06:11 | NUR ---
SHIFT SUMMARY PT RESTING QUIELTY. STARTED ON DILAUDID ENVIRONMENTAL SCIENCE TECHNICIAN DUE TO FENTANYL AND ROXICODONE NOT HELPING PAIN. PT REPORTS GOOD PAIN CONTROLL WITH DILAUDID ENVIRONMENTAL SCIENCE TECHNICIAN. STATES,"I CAN FEEL THE PAIN, BUT I AM ABLE TO REST". LEFT GROIN STABLE. SITE CLEAR AND SOFT TO PALPATION. NO BLEEDING OR HEMATOMA NOTED. RIGHT FOOT WARMER THIS AM AND COLOR ABOUT THE SAME LEFT FOOT. PT PLACE ON O2 AT 2 LITER WHILE SLEEPING DUE TO SPO2 DOWN TO 88%. REPORT TO ON COMING NURSE
[2021-12-21 06:27] LABS: Albumin, Blood 3.4 g/dL (3.4-5.0); Bilirubin, Total 0.5 mg/dL (0.1-1.0); Bun/Creatinine Ratio 13.2 (12.0-20.0); Calcium, Blood 8.4 mg/dL (8.5-10.1); Creatinine, Blood 0.76 mg/dL (0.60-1.20); Globulin, Blood 3.4 g/dL (2.2-4.0); Potassium, Blood 5.5 mmol/L (3.5-5.5); Total Protein, Blood 6.8 g/dL (6.4-8.2)
--- NOTE | 2021-12-21 07:00 | NUR ---
ASSUMED CARE OF PT AT 0700 RESTING COMFORTABLY, DENIES PAIN AT THIS TIME, HAS DILAUDID PCP AT 1MG CONTINUOUS RATE WITH 1MG DEMAND DOSE WITH A LOCKOUT OF 30 MINUTES. SHEATH IN RIGHT GROIN CLEAN/DRY/INTACT. PLAN IS FOR GUEST SERVICE SUPERVISOR THIS AFTERNOON. RN TO CONTINUE TO MONITOR.
--- NOTE | 2021-12-21 17:30 | NUR ---
RETURNED FROM PROCEDURE AT 1730 HEPARIN TO BE STARTED IV, TITRATION PER PHARMACY. ANGIO SEAL TO LEFT GROIN. PT SLEEPING. DILAUDID GROUP WORK PROGRAM AIDE OFF DUE TO SOMNOLENCE AFTER PROCEDURE MEDICATIONS. GROIN SITE SOFT, NON-TENDER. DSG CLEAN, DRY AND INTACT. RN TO CONTINUE TO MONITOR.
--- NOTE | 2021-12-21 19:15 | NUR ---
ASSUMED CARE OF PT @1900. BEDSIDE REPORT, PT IS A&O. L ANGIOSEAL GROIN SITE SOFT WITH NO HEMATOMA. HEPARIN AND DILAUDID ON STANDBY.
--- NOTE | 2021-12-21 19:22 | NUR ---
END OF SHIFT NOTE REPORT GIVEN TO ONCOMING SHIFT NEURO: ALERT AND ORIENTED CARDIAC: SR HR 70-80'S, BP STABLE RESP: ROOM AIR WHEN AWAKE, 2L NC WHEN ASLEEP TO MAINTAIN O2 SATS>92% GI: ATE 100% BREAKFAST, LUNCH HELD DUE TO PROCEDURE. NO N/V. : VOIDS, CLEAR YELLOW URINE SKIN: INTACT. SHEATH REMOVED FROM LEFT GROIN IN TANK CARPENTER TODAY. ANGIOSEAL PLACED. SITE SOFT, NON-TENDER. DRESSING C/D/I. IV: [id number] AFTER TANK CARPENTER. HEPARIN TO BE RESTARTED AND MANAGED BY PHARMACY. ENDORSED TO ONCOMING SHIFT. PT DILAUDID BUILD AND RELEASE MANAGER OFF SINCE TANK CARPENTER. RECIEVED VERSED AND FENTANYL DURING PROCEDURE AND RETURNED SOMNOLENT.
[2021-12-22 01:22] LABS: BASOPHILS ABSOLUTE AUTO 0.06 K/mm3 (0.00-0.23); BASOPHILS PERCENT AUTO 1 % (0-2); EOSINOPHILS ABSOLUTE AUTO 0.16 K/mm3 (0.00-0.68); EOSINOPHILS PERCENT AUTO 1 % (0-6); Hematocrit 38.8 % (37.0-53.0); Hemoglobin 12.7 g/dL (13.5-17.5); IMMATURE GRAN ABSOLUTE AUTO 0.03 K/mm3 (0.00-0.10); IMMATURE GRAN PERCENT AUTO 0 % (0-1); LYMPHOCYTES ABSOLUTE AUTO 2.01 K/mm3 (0.84-5.20); LYMPHOCYTES PERCENT AUTO 17 % (21-46); MONOCYTES ABSOLUTE AUTO 1.17 K/mm3 (0.16-1.47); MONOCYTES PERCENT AUTO 10 % (4-13); Mean Corpuscular HGB 30.2 pg (26.0-34.0); Mean Corpuscular HGB Conc 32.7 g/dL (31.5-36.5); Mean Corpuscular Volume 92 fL (80-100); Mean Platelet Volume 10.6 fL (9.1-12.4); NEUTROPHILS ABSOLUTE AUTO 8.36 K/mm3 (1.96-9.15); NEUTROPHILS PERCENT AUTO 71 % (41-73); Platelet Count 229 K/mm3 (150-400); RDW Coefficient Variation 12.7 % (11.7-14.2); Red Blood Cell Count 4.21 M/mm3 (4.30-5.90); White Blood Cell Count 11.79 K/mm3 (4.00-11.30)
[2021-12-22 01:42] LABS: Bun/Creatinine Ratio 23.2 (12.0-20.0); Calcium, Blood 8.5 mg/dL (8.5-10.1); Creatinine, Blood 0.82 mg/dL (0.60-1.20); Potassium, Blood 4.4 mmol/L (3.5-5.5)
--- NOTE | 2021-12-22 06:04 | NUR ---
SUMMARY NEURO/PSYCH/MOBILITY: PT IS ALERT AND ORIENTED X4. PT COMPLAINED OF PAIN IN HIS RLE THROUGHOUT THE SHIFT. PAIN MEDICATION GIVEN PRN. PT CAN MOVE FEET AND TOES. K PAD APPLIED FOR PAIN RELIEF AND REPOSITIONING NEEDED. PT MAKES MINOR ADJUSTMENTS TO BODY POSITION AND USES HIS URINAL INDEPENDENLTY. T MAX 100.0. PERRL. RESP: LUNGS CLEAR THROUGHOUT. PT ON RA AT BASELINE. DESATS INTO THE HIGH 80'S BEGINNING OF SHIFT W/SLEEP AND DILAUDID SHEAR GRINDER OPERATOR HELPER. O2 VIA NC @3L. SPO2 >92%. RR 12-16. PT DENIES SHORTNESS OF BREATH OR CHEST PAIN THROUGHOUT SHIFT. CARDIAC: HR 70'S, SBP 120-140'S. HEPARIN INFUSING @15U/KG/HR. PT HAS TRACE EDEMA BLE. UNABLE TO DOPPLER PULSES IN THE LOWER EXTREMETIES FOR THE EXCEPTION OF L TIBIAL. RLE SLIGHTLY MORE PALE AND COOLER TO THE TOUCH THAN LLE. CONTINUOUS CARDIAC MONITORING. GI: PT IS EATING AND DRINKING INDEPENDENTLY. ASSESSMENT REMAINS UNCHANGED. : PT IS URINATING INDEPENDENTLY. ASSESSMENT REMAINS UNCHANGED. SKIN: ASSESSMENT REMAINS UNCHANGED.
--- NOTE | 2021-12-22 09:28 | NUR ---
ASSUMED CARE PT IS ALERT AND ORIENTED. MAP >65 AND SPO2 >92% ON RA. HEPARIN STOPPED AND XERALTO STARTED PER ORDER. ABSENT PULSES IN RIGHT FOOT; DUSKY NEAR THE TOES. WAS ABLE TO FIND POSTERIOR TIBIAL PULSE WITH DOPPLER. PAIN IS STILL AN ISSUE AND PT WILL BE STAYING ON MEDICAL FLOOR PER DR CARVALHO FOR PAIN MANAGEMENT.
--- NOTE | 2021-12-22 14:57 | NUR ---
UPDATE PT'S GROIN SITE ABSENT OF REDNESS, SWELLING, OR HEMATOMA. JANICE MELTON WAS ABLE TO FIND A PEDAL PULSE ON BOTH FEET AND POST TIBIAL PULSE ON LEFT FOOT.
--- NOTE | 2021-12-22 17:55 | NUR ---
ASSUMED CARE OF THIS PT. ORIENTED TO THE ROOM. MEDICATED FOR PAIN. PT IS USING BEDSIDE URINAL.
--- NOTE | 2021-12-23 04:39 | NUR ---
SHIFT SUMMARY 61 YR M TRANSFERED FROM ICU ON 12/20/21 AFTER A LEFT POPLEATEAL BYPASS. FULL CODE. NO ACUTE CHANGES THIS SHIFT. PT HAS AN ANGIOSEAL ON LEFT FEMORAL ARTERY AT THE GROIN. BOTH LEGS APPEAR TO BE THE SAME COLOR AND TEMPERATURE. PT HAS STAYED IN BED AND USED THE URINAL WHEN NECESSARY.
[2021-12-23 04:52] LABS: BASOPHILS ABSOLUTE AUTO 0.05 K/mm3 (0.00-0.23); BASOPHILS PERCENT AUTO 1 % (0-2); EOSINOPHILS ABSOLUTE AUTO 0.18 K/mm3 (0.00-0.68); EOSINOPHILS PERCENT AUTO 2 % (0-6); Hematocrit 36.4 % (37.0-53.0); Hemoglobin 12.2 g/dL (13.5-17.5); IMMATURE GRAN ABSOLUTE AUTO 0.03 K/mm3 (0.00-0.10); IMMATURE GRAN PERCENT AUTO 0 % (0-1); LYMPHOCYTES ABSOLUTE AUTO 1.16 K/mm3 (0.84-5.20); LYMPHOCYTES PERCENT AUTO 11 % (21-46); MONOCYTES ABSOLUTE AUTO 1.05 K/mm3 (0.16-1.47); MONOCYTES PERCENT AUTO 10 % (4-13); Mean Corpuscular HGB 29.8 pg (26.0-34.0); Mean Corpuscular HGB Conc 33.5 g/dL (31.5-36.5); Mean Corpuscular Volume 89 fL (80-100); Mean Platelet Volume 10.6 fL (9.1-12.4); NEUTROPHILS ABSOLUTE AUTO 8.45 K/mm3 (1.96-9.15); NEUTROPHILS PERCENT AUTO 77 % (41-73); Platelet Count 209 K/mm3 (150-400); RDW Coefficient Variation 12.4 % (11.7-14.2); RDW Standard Deviation 40.9 fL (35.1-46.3); Red Blood Cell Count 4.09 M/mm3 (4.30-5.90); White Blood Cell Count 10.92 K/mm3 (4.00-11.30)
[2021-12-23 05:15] LABS: Calcium, Blood 8.2 mg/dL (8.5-10.1); Creatinine, Blood 0.6 mg/dL (0.60-1.20); Potassium, Blood 4.1 mmol/L (3.5-5.5)
[2021-12-23] MEDS ORDERED: ACET500 PO (12:03)
[2021-12-23] MEDS ORDERED: OXYC10TA19 PO (12:16)
[2021-12-23] MEDS ORDERED: SENN187 PO (12:17)
--- NOTE | 2021-12-23 15:24 | NUR ---
PT DISCHARGED FROM THE UNIT. IV REMOVED. DISCHARGE INSTRUCTIONS REVIEWED. PT LEFT VIA WHEEL CHAIR. ADVISED PT TO HAVE SOMEONE DRIVE HIM HOME. INSTRUCTED TO FOLLOW UP WITH DR. AVITIA AND HIS PCP. LEFT VIA WHEEL CHAIR.
== END 2021-12-23 13:12 | disposition home or self-care (01) | DRG 254 ==
LOC: ICUE 15:16 → MEDS 12-22 15:52
PROVIDERS: Internal Medicine; Radiology Diagnostic Radiology; ADMIT Internal Medicine
PROC: B41FYZZ Fluoroscopy of Right Lower Extremity Arteries using Other Contrast (ICD-10-PCS; 2021-12-20)
PROC: 3E05317 Introduction of Other Thrombolytic into Peripheral Artery, Percutaneous Approach (ICD-10-PCS; 2021-12-20)
PROC: 047P3ZZ Dilation of Right Anterior Tibial Artery, Percutaneous Approach (ICD-10-PCS; principal; 2021-12-21)
PROC: 047R3ZZ Dilation of Right Posterior Tibial Artery, Percutaneous Approach (ICD-10-PCS; 2021-12-21)
PROC: 047T3ZZ Dilation of Right Peroneal Artery, Percutaneous Approach (ICD-10-PCS; 2021-12-21)
DX: I70.321 Atherosclerosis of unspecified type of bypass graft(s) of the extremities with rest pain, right leg (principal); E78.5 Hyperlipidemia, unspecified; I10 Essential (primary) hypertension; Z88.1 Allergy status to other antibiotic agents; Z79.899 Other long term (current) drug therapy; Z79.02 Long term (current) use of antithrombotics/antiplatelets; Z87.891 Personal history of nicotine dependence; K21.9 Gastro-esophageal reflux disease without esophagitis
CPT/HCPCS: 36247; 36415; 37211; 37214; 37228; 37232; 75716; 75774; 76937; 80048; 80053; 85025; 85027; 85384; 85610; 85730; 93005; 93010; 94762; 99152; 99153; A9270; C1725; C1757; C1760; C1769; C1887; C1894; J1170; J1644; J2250; J2997; J3010; J7030; J7040; J7050; Q9967